=== PATIENT | male | born 1975 | race Two or more races ===

== ENCOUNTER 2020-02-19 00:09 | Emergency (ER) | payer OTHER ==
[~2020-02-19] VITALS: Ht 175.3 cm; Wt 131.5 kg
[2020-02-19] MEDS ORDERED: ACETAMINOPHEN 325 MG TAB PO ONE (01:00)
[2020-02-19 03:01] VITALS: BP 151/84
== END 2020-02-19 03:45 | disposition home or self-care (01) ==
LOC: EDBD 00:09 → ER 00:09
DX: S16.1XXA Strain of muscle, fascia and tendon at neck level, initial encounter (principal); S39.012A Strain of muscle, fascia and tendon of lower back, initial encounter; S20.212A Contusion of left front wall of thorax, initial encounter; S29.019A Strain of muscle and tendon of unspecified wall of thorax, initial encounter; V49.9XXA Car occupant (driver) (passenger) injured in unspecified traffic accident, initial encounter; Y93.89 Activity, other specified; Y92.89 Other specified places as the place of occurrence of the external cause; Y99.8 Other external cause status
CPT/HCPCS: 70450; 71045; 72070; 72100; 72125